=== PATIENT | male | born 1965 | race American Indian/Alaskan Native ===

== ENCOUNTER 2016-11-06 11:20 | Day surgery (SDC) | payer OTHER ==
[~2016-11-06 11:20] MED LIST: WATER FOR IRRIG STERILE IR ONE
[2016-11-06] MEDS ORDERED: NACL 0.9% 1000 ML 1,000 ML IV SCH (12:00)
--- NOTE | 2016-11-06 13:22 | Anesthesia Consultation ---
Anesthesia Consult and Med Hx Date of service: 11/06/16 - Airway Anesthetic Teeth Evaluation: Good (missing one lower and one lower loose) ROM Head & Neck: Adequate Mental/Hyoid Distance: Adequate Mallampati Class: Class II Intubation Access Assessment: Probably Good - Pulmonary Exam CTA: Yes - Cardiac Exam Cardiac Exam: RRR - Pre-Operative Health Status ASA Pre-Surgery Classification: ASA3 Proposed Anesthetic Plan: MAC - Pulmonary Hx Smoking: Yes (1 PPD) - Other Systems Hx Alcohol Use: Yes (2 beers a day during week, 6pack on weekend) - Additional Comments Anesthesia Medical History Comments: HEP C
--- NOTE | 2016-11-06 13:22 | Anesthesia Day of Surgery ---
Anesthesia Day of Surgery - Day of Surgery Patient Examined: Yes Patient H&P Reviewed: Yes Patient is NPO: Yes
[2016-11-06] MEDS ORDERED: DIPRIVAN 10 MG/ML IV ONE ×2 (13:23)
--- NOTE | 2016-11-06 13:53 | Operative Report ---
Operative Report Operative Report: Date of procedure: 11/06/2016 Procedure: Colonoscopy with multiple hot biopsy polypectomies, multiple polyp ablations. Attending physician: Jayson Wagner MD Manager Payer: Jayson Wagner MD Indication: Patient is a 51-year-old male who presents for colorectal cancer screening. A colonoscopy serves to evaluate patient for colorectal cancer screening. Consent: Informed consent was obtained after advising the patient and family regarding nature of this procedure, its indications, potential benefits as well as possible complications including but not limited to bleeding perforation and adverse reaction to medication, infection as well as other cardiopulmonary complications. An informed written and verbal consent was then obtained after due opportunity was provided for questions and answers. Monitoring: Patient was monitored continuously with pulse oximetry and electrocardiographic recordings as well as blood pressure recordings. Vital signs remained stable throughout this procedure with no untoward events. Preoperative assessment: Patient was assessed immediately prior to this procedure for capacity to tolerate monitored anesthesia care and moderate sedation as well as general anesthesia. Patient's ASA classification is 2, Mallampati class is 2, Hyomental distance is 3. Instrument: InfoDifn videocolonoscope. Jingitinon video endoscope. Medications: Propofol given intravenously in divided doses. For details please refer to anesthesia records. Description of procedure: Patient was placed in the left lateral decubitus position after achieving sedation, a digital rectal examination was performed following which the colonoscope was introduced into the anal verge and advanced to the cecum which was identified by the cecal valve, the appendiceal orifice, as well as by the cecal strap and direct transillumination. The colonoscope was subsequently withdrawn with careful inspection of all mucosal surfaces. Patient tolerated this procedure well and was subsequently taken to the recovery room. The following findings were noted. Findings: Patient had multiple diminutive flat polyps in the rectum which were ablated. Also there were 4 additional diminutive polyps that were removed hot biopsy polypectomy. Patient also had 2 polyps in the sigmoid colon that were removed by hot biopsy polypectomy. There were 2 additional polyps in sigmoid colon that were ablated. The rest of the colon to the cecum was normal. On the retroflex view at the anal verge, patient had internal hemorrhoids. Patient tolerated the procedure well with no untoward events. Impression: Multiple diminutive rectal polyps, status post hot biopsy polypectomy and polyp ablation Diminutive sigmoid colon polyps status post hot biopsy polypectomy Diminutive flat sigmoid colon polyps status post ablation Internal hemorrhoids Plan: Follow pathology report High-fiber diet. Repeat colonoscopy in 5 years
--- NOTE | 2016-11-06 13:54 | Discharge Summary ---
Short Stay Discharge Plan Activity: advance as tolerated Weight Bearing Status: Weight Bear as Tolerated Diet: regular
--- NOTE | 2016-11-06 14:02 | Post Anesthesia Evaluation ---
- Post Anesthesia Evaluation Patient Participated: Yes Airway Patent: Yes Stable Respiratory Function: Yes Nausea/Vomiting: No Temp > 96.8F: Yes Pain Manageable: Yes Adequeate Hydration: Yes Anesthesia Complications: No
[2016-11-06 14:18] VITALS: BP 115/79
[2016-11-06] MEDS ORDERED: WATER FOR IRRIG STERILE IR ONE (14:31)
== END 2016-11-06 11:21 | disposition home or self-care (01) ==
LOC: GIO 11:20
PROVIDERS: ATTEND Internal Medicine Gastroenterology
DX: Z12.11 Encounter for screening for malignant neoplasm of colon (principal); K63.5 Polyp of colon; D12.8 Benign neoplasm of rectum; K64.8 Other hemorrhoids; F17.210 Nicotine dependence, cigarettes, uncomplicated; Z72.89 Other problems related to lifestyle; Z80.0 Family history of malignant neoplasm of digestive organs; Z98.890 Other specified postprocedural states
CPT/HCPCS: 45384; 45388; 88305; J2704; J7030

== ENCOUNTER 2017-05-01 08:24 | Emergency (ER) | payer OTHER ==
[2017-05-01] MEDS ORDERED: NACL 0.9% 1000 ML 1,000 ML IV ONE (11:57)
[2017-05-01] MEDS ORDERED: LEVAQUIN 500MG/100ML 500 MG/100 ML BAG IV ONE (12:01)
--- NOTE | 2017-05-01 12:08 | Emergency Department Report ---
Abscess Boil HPI - HPI Chief Complaint: Rectal Pain Stated Complaint: HEMORRHOIDS Time Seen by Provider: 05/01/17 11:08 Duration: 2 Days Location: Perianal Severity: Moderate History: Yes Pain, Yes Purulent Drainage, No Fever, No Numbness, No Foreign Body , No Previous History, No Insect Bite HPI: This is a 52-year-old male nontoxic, well nourished in appearance, no acute signs of distress presents to the ED with c/o of perianal pain x2 days. Patient denies any sexual intercourse in that area. Patient denies any rectum bleeding, fever, chills, nausea, vomiting, chest pain, abdominal pain, numbness , tingling, headache, or stiff neck. Patient denies any allergies or PMH. Home Medications: Previous Rx's Medication Instructions Recorded Last Taken Type Amoxicillin/K Clav Tab [Augmentin 1 tab PO Q12HR #20 tab 05/01/17 Unknown Rx 875 mg] HYDROcodone/ACETAMINOPHEN [[place] 1 each PO Q8H PRN #15 tablet 05/01/17 Unknown Rx 7.5-325 Tablet] Ibuprofen [Motrin] 800 mg PO Q8HR PRN #30 tablet 05/01/17 Unknown Rx Allergies/Adverse Reactions: Allergies Allergy/AdvReac Type Severity Reaction Status Date / Time No Known Allergies Allergy Verified 05/01/17 10:44 ED Review of Systems ROS: Stated complaint: HEMORRHOIDS Other details as noted in HPI Constitutional: denies: chills, fever Eyes: denies: eye pain, eye discharge, vision change ENT: denies: ear pain, throat pain Respiratory: denies: cough, shortness of breath, wheezing Cardiovascular: denies: chest pain, palpitations Endocrine: no symptoms reported Gastrointestinal: denies: abdominal pain, nausea, diarrhea Genitourinary: denies: urgency, dysuria Musculoskeletal: denies: back pain, joint swelling, arthralgia Skin: denies: rash, lesions Neurological: denies: headache, weakness, paresthesias Psychiatric: denies: anxiety, depression Hematological/Lymphatic: denies: easy bleeding, easy bruising ED Past Medical Hx - Past Medical History Previous Medical History?: No - Surgical History Past Surgical History?: No - Social History Smoking Status: Current Every Day Smoker - Medications Home Medications: Home Medications Medication Instructions Recorded Confirmed Last Taken Type Amoxicillin/K Clav Tab [Augmentin 1 tab PO Q12HR #20 tab 05/01/17 Unknown Rx 875 mg] HYDROcodone/ACETAMINOPHEN [[place] 1 each PO Q8H PRN #15 tablet 05/01/17 Unknown Rx 7.5-325 Tablet] Ibuprofen [Motrin] 800 mg PO Q8HR PRN #30 tablet 05/01/17 Unknown Rx ED Abscess Boil Physical Exam - Exam General: Vital signs noted. No distress. Alert and acting appropriately. GENERAL: The patient is a well-developed, well-nourished in no apparent distress. Patient is alert and acting appropriately for age. Alert and oriented 3, no apparent distress, normal gait, atraumatic. HEENT: Head is normocephalic and atraumatic. PERRL, Extraocular muscles are intact. Pupils are equal, round, and reactive to light and accommodation. Nares appeared normal. Mouth is well hydrated and without lesions. Mucous membranes are moist. Posterior pharynx clear of any exudate or lesions. Mouth is well hydrated and without lesions. Tonsils not erythematous or swollen. Uvula midline. Tongue elevated. Mucous members are moist. Posterior pharynx clear, no exudate or lesions. Patent airways. NECK: Supple. No carotid bruits. No lymphadenopathy or thyromegaly.nontender. No meningitic signs are noted. LUNGS: Clear to auscultation. Non labor breathing. No intercostal retractions. Symmetrical with respiration, no wheezing, no rales, or crackles. HEART: Regular rate and rhythm without murmur, rubs or gallops. No reproducible. S1, S2 present, regular rate and rhythm without murmur, no rubs, no gallops. ABDOMEN: Soft, nontender, and nondistended. Positive bowel sounds. No hepatosplenomegaly was noted. No guarding or rebound tenderness, negative epigastric bruit. Negative psoas sign, negative choi sign, negative McBurneys sign EXTREMITIES: Without any cyanosis, clubbing, rash, lesions or edema. Peripheral pulses intact. Capillary refill less than 2 seconds. Full range of motion bilaterally. NEUROLOGIC: Cranial nerves II through XII are grossly intact. Alert and oriented x 3. Normal gait. Symmetrical strength and sensation. Reflexes 2+ throughout. Cerebellar testing normal. GCS score of 15. PSYCHIATRIC: Normal affect with no suicidal or homicidal ideations. Skin: No anal hemorrheads present. 2 cm swelling with induration and flutance noted in the perianal region. Tender to touch. No pus or drainage noted. Size: 2 cm Exam: Yes Tenderness, Yes Fluctuance, Yes Normal Neurologic Exam, Yes Normal Circulation, No Surrounding Cellulites/Erythema, No Lymphangitis, No Crepitation , No Heart Murmur ED Course Vital Signs 05/01/17 10:44 Temperature 98.3 F Pulse Rate 82 Respiratory 16 Rate Blood Pressure 117/83 O2 Sat by Pulse 98 Oximetry - Reevaluation(s) Reevaluation #1: 05/01/17 12:09 Patient is speaking in full sentences with no signs of distress noted. - Consultations Consultation #1: 05/01/17 12:09 Patient has been consulted with Dr. Twan V about patient history, physical exam, and CT pending and agrees to ED plan of care and discharge plan of care. Consultation #2: 05/01/17 13:52 Dr. Aggarwal was consulted about patient history, physical exam, and imaging results and stated to discharge with augmentin and f/u in 14 days. Critical care attestation.: If time is entered above; I have spent that time in minutes in the direct care of this critically ill patient, excluding procedure time. ED Medical Decision Making - Lab Data Result diagrams: 05/01/17 12:20 05/01/17 12:20 - Medical Decision Making This is a 52-year-old male that presents with perianal abscess. PAtient is stable and was examined by me. CT obtained and dictated by the radiologist with impression of 1.7 cm perianal abscess. Patient is notified of the results with no questions noted by the patient. LAbs within normal limits. Patient received Levo and Flagyl IV in the ED. Dr. Trent was consulted and agrees to the ED plan of care. Dr. Aggarwal surgery was consulted about patient history, physical exam, and CT results and stated to discharge patient with augmentin and follow- up in 14 days. Patient was given strict precautions on observation of increasing swelling and if so to reports a disturbance was possible. Patient was educated and instructed on applying warm compressors. Patient was instructed not to operate any machinery after discharge due to drowsiness of Morphine that he received in the ED and patient stated he will have a family member drive the patient home. Patient discharged with Augmentin. At time of discharge, the patient does not seem toxic or ill in appearance. No acute signs of distress noted. Patient agrees to discharge treatment plan of care. No further questions noted by the patient. ED Disposition Clinical Impression: Perianal abscess Disposition: DC- TO HOME OR SELFCARE Is pt being admited?: No Does the pt Need Aspirin: No Condition: Stable Instructions: Acetaminophen/Codeine (By mouth), Amoxicillin/Clavulanate Potassium (By mouth), Anorectal Abscess and Anal Fistula (ED), Abscess (ED) Additional Instructions: Follow-up with a surgery doctor in 3-5 days or if symptoms worsen and continue return to emergency room as soon as possible. Apply warm compressors to the area. General Surgery Dr. Aggarwal [phone] Prescriptions: Amoxicillin/K Clav Tab [Augmentin 875 mg] 1 tab PO Q12HR #20 tab HYDROcodone/ACETAMINOPHEN [[place] 7.5-325 Tablet] 1 each PO Q8H PRN #15 tablet PRN Reason: Pain Ibuprofen [Motrin] 800 mg PO Q8HR PRN #30 tablet PRN Reason: Pain Referrals: PRIMARY CARE,MD [Primary Care Provider] - 3-5 Days JOCELYN AGGARWAL DO [Staff Physician] - 3-5 Days [facility] [Outside] - 3-5 Days [facility] [Outside] - 3-5 Days Forms: Work/School Release Form(ED)
[2017-05-01 12:38] LABS: Basophils # (Auto) 0.1 K/mm3 (0.0-0.1); Basophils % (Auto) 0.8 % (0.0-1.8); Eosinophils # (Auto) 0.1 K/mm3 (0.0-0.4); Eosinophils % (Auto) 1.1 % (0.0-4.3); Hematocrit 44.5 % (35.5-45.6); Hemoglobin 14.6 gm/dl (11.8-15.2); Lymphocytes # (Auto) 3.3 K/mm3 (1.2-5.4); Lymphocytes % (Auto) 31.8 % (13.4-35.0); Mean Corpuscular HGB Conc 33 % (32-34); Mean Corpuscular Hemoglobin 28 pg (28-32); Mean Corpuscular Volume 84 fl (84-94); Monocytes % (Auto) 9.8 % (0.0-7.3); Platelet Count 269 K/mm3 (140-440); Red Blood Count 5.27 M/mm3 (3.65-5.03); Red Cell Distribution Width 13.9 % (13.2-15.2)
[2017-05-01 12:49] LABS: BUN/Creatinine Ratio 11; Blood Urea Nitrogen 12 mg/dL (9-20); Calcium 9.4 mg/dL (8.4-10.2); Hemolysis Index 23
[2017-05-01] MEDS ORDERED: FLAGYL 500 MG/100 ML 500 MG/100 ML BAG IV SCH (13:00)
--- NOTE | 2017-05-01 13:34 | Cat Scan Report ---
CT PELVIS WITH CONTRAST History: Rectal pain, evaluate for perianal abscess. Technique: Helical CT following IV contrast. Sagittal and coronal reformatted images. Findings: A 1.7 cm perianal abscess is identified in the right side. This is best demonstrated on the delayed images, series 4, image 49. No extension into the ischiorectal fat. The bladder, distal ureters, prostate gland and visualized bowel loops in the pelvis are within normal limits. The vascular structures are patent. The bony pelvis is intact. Impression: 1.7 cm right perianal abscess.
[2017-05-01] MEDS ORDERED: MORPHINE IV ONE (13:42)
[2017-05-01] MEDS ORDERED: ZOFRAN IV ONE (13:42)
[2017-05-01 14:26] LABS: Bilirubin,Urine NEG (Negative); Blood,Urine NEG (Negative); Color,Urine Yellow (Yellow); Mucus,Urine FEW /HPF; Protein,Urine <15 mg/dL mg/dL (Negative); Urobilinogen,Urine < 2.0 mg/dL (<2.0); WBC,Urine < 1.0 /HPF (0.0-6.0)
[2017-05-01 14:33] VITALS: BP 118/80
== END 2017-05-01 14:32 | disposition home or self-care (01) ==
LOC: ED 08:24
DX: K61.0 Anal abscess (principal); F17.200 Nicotine dependence, unspecified, uncomplicated
CPT/HCPCS: 36415; 72193; 80048; 81001; 85025; 96365; 96368; 96375; 99284; J1956; J2270; J2405; J7030; Q9967